=== PATIENT | female | born 1955 | race Caucasian/White ===

== ENCOUNTER 2024-08-06 18:11 | Emergency (ER) | payer MEDICARE, SELFPAY ==
[2024-08-06 18:19] VITALS: BP 138/96; PULSE 766; O2SAT 97
[2024-08-06 19:01] VITALS: BP 128/76; PULSE 85; RESP 18; TEMP 36.5; O2SAT 97; BMI 26.6
--- NOTE | 2024-08-06 19:01 | ED_ITS ---
HPI - Psych General Chief Complaint: Psychiatric Symptoms Stated Complaint: MENTAL HEALTH Time Seen by Provider: 08/06/24 21:04 Source: patient Mode of arrival: ambulatory Limitations: no limitations History of Present Illness ED Provider: Dr. Aspen Gabriel HPI Narrative: Patient comes to the emergency room complaining of severe anxiety and depression. Patient states that she is compliant with her medications. Denies SI or HI. Patient reports that approximately a month ago the symptoms got worse after she ended a relationship. Patient comes accompanied by a friend who gives most of the history. Seems that patient has had more episodes of shakiness which are worse in the morning. Earlier today they went to [facility], referred to [facility] and they referred them to the ED. Related Data Allergies Allergy/AdvReac Type Severity Reaction Status Date / Time No Known Allergies Allergy Verified 08/06/24 19:07 Review of Systems 2 Review of Systems: Constitutional : No Weight loss, No Fever, No Chills, No Night Sweats, No Fatigue, No Malaise ENT/Mouth : No Hearing loss, No Ear Pain, No Nasal Congestion, No Sinus Pain, No Hoarseness, No sore throat, No Rhinorrhea, No Swallowing Difficulty Eyes: No Eye Pain, No Swelling, No Redness, No Foreign Body, No Discharge, No Vision Changes Cardiovascular : No Chest Pain, No SOB, No Dyspnea on Exertion, No Orthopnea, No Edema, No Palpitations Respiratory : No Cough, No Sputum, No Wheezing, No Smoke Exposure, No Dyspnea Gastrointestinal : No Nausea, No Vomiting, No Diarrhea, No Constipation, No abdominal Pain, No Hematochezia, No Melena Genitourinary : no irregular bleeding, No Dysuria, No Urinary Frequency, No Hematuria, No Urinary Incontinence, No Urgency, No Flank Pain, No Urinary Flow Changes, No Hesitancy Musculoskeletal : No joint pain, No Myalgias, No Joint Swelling Skin : No Skin Lesions, No rash Neuro : No Weakness, No Numbness, No Paresthesias, No Loss of Consciousness, No Dizziness, No Headache Psych : Complaining of anxiety, depression and panic attacks, worsening shakiness and jaw movements in the morning from anxiety, No SI/HI/AH/VH, No Social Issues, Heme/Lymph: No Bruising, No Bleeding,No Lymphadenopathy Endocrine : No Polyuria, No Polydipsia, No Temperature Intolerance [facility] Past Medical History Medical History (Updated 08/06/24 @ 22:03 by Aspen Gabriel MD) Anxiety and depression Social History Social History Advance Directives: No Advance Directives Information Provided: No Physical Exam 2 Vital Signs: Vital Signs: Last Vital Signs Temp 97.7 F 08/06/24 19:01 Pulse 85 08/06/24 19:01 Resp 18 08/06/24 19:01 BP 128/76 08/06/24 19:01 Pulse Ox 97 08/06/24 19:01 O2 Del Method Room Air 08/06/24 19:01 BMI result Body Mass Index 26.6 Const: Other: Appearance: Alert. Oriented X3. No acute distress. Eyes: Pupils equal, round and reactive to light. ENT: Pharynx normal. Neck: Normal inspection. Neck supple. No lymph nodes noted. No crepitus CVS: Normal heart rate and rhythm. Pulses normal. Normal S1 and S2 Respiratory: No respiratory distress. Breath sounds normal. No Wheezing. No rales Abdomen: Soft and nontender. No rigidity. No distention. Skin: Skin warm and dry. Normal skin color. Normal skin turgor. Extremities: No lower extremity edema. No Lacerations. No Rash Neuro: Oriented X 3. No motor deficit. No sensory deficit. Moving all extremities. No slurred speech. CN 2 through 12 grossly intact Psych: calm, cooperative, a bit anxious, shaking her hands and jaw Course Course Course Narrative: This is a Rapid Medical Examination (RME) performed by Stefanie Alegre PA-C in triage. Full HPI, ROS, assessment and treatment plan per primary provider in the Main ED. 69 yo female hx of anxiety here via EMS from [facility] for mental health issues . reports increased anxiety and stress x months surrounding her current job. reports patient tremulous every morning. currently on risperodone, citalopram, and hydroxyzine x1 year. no recent med changes. denies SI/HI. reports she has conversations with people that don't exist . in response to this, patient states that she sleep walks and does things that she is not aware of. admits to occasional etoh consumption. smokes marijuana occasionally to help her sleep. hoping to have patient evaluated by psych. + no tremors, no clonus Plan: medical clearance, care team, psych eval Medical Decision Making Medical Decision Making MDM Narrative: -my interpretation of labs: No obvious abnormality in hematology, chemistry is within normal limits, LFTs are elevated based on and ETOH pattern, urinalysis negative for UTI, ETOH positive for marijuana and alcohol -patient's friend states that in the past patient has been admitted, inpatient and did very well with it. Both patient and her friend believes that it would be the best option for them. -patient is not SI or HI, at this time sections of is not indicated -physician observation started at 09:20 p.m. Patient was given her home medications and also a dose of Ativan since she is very anxious. -I discussed with the patient and her friend that the care team will not be evaluating the patient until approximately 03:00 to 04:00 because her alcohol blood levels are elevated. -patient's friend adamant that he would prefer that she was 20 inpatient setting, even if it is dual diagnosis for alcohol dependence and depression/anxiety -care team consult pending -patient is unwilling to stay as she wants to be evaluated right away. I spoke with the care team, but at this time, they will not do the evaluation due to the high alcohol levels. -patient is adamant that she is not SI or HI, there is no indication to Section 12 the patient. -patient able to walk with steady gait -patient's friend is willing to take her home. -I spoke with the care team, they informed me that the patient was already evaluated by [facility] prior to coming. [facility] recommend outpatient care and follow-up, they were given resources. The patient's friend got up because he wants her to go inpatient. Patient called an ambulance from [facility] to bring her to the emergency room. Care team willing to re-evaluate the patient. However, as mentioned above, they will have to wait until the patient's alcohol level comes down -per patient's request, patient being discharged. Patient's friend willing to take her home Differential Diagnosis Differential Diagnoses: The differential diagnosis associated with the presentation includes (Anxiety, depression) Admission/Observation Consideration of admission/observation: Escalation of care including admission/observation considered (Patient is under physician observation waiting to be seen by the care team and determine patient's disposition) Lab Data MDM Lab Attestation statement: I reviewed the patient's lab results. 08/06/24 19:43 08/06/24 19:43 Labs: Lab Results 10/04/24 Range/Units 19:43 WBC 3.4 L (4.8-10.8) X10*3/uL RBC 3.93 L (4.20-5.50) X10*6/uL Hgb 13.3 (12.0-16.0) g/dl Hct 38.1 (37.0-47.0) % MCV 96.9 (80.0-98.0) fL MCH 33.8 H (27.0-33.0) pg MCHC 34.9 (31.0-35.0) g/dl RDW 13.6 (11.0-16.0) % Plt Count 176 (160-400) X10*3/uL MPV 8.8 L (9.4-12.3) fL Immature Gran % (Auto) 0.3 (0.0-0.4) % Neut % (Auto) 36.2 L (45-73) % Lymph % (Auto) 51.5 H (20-40) % [place] % (Auto) 9.9 (2-11) % Eos % (Auto) 1.2 (0-4) % Baso % (Auto) 0.9 (0-2) % Lymph # (Auto) 1.8 (1.2-4.9) X10*3/uL [place] # (Auto) 0.3 (0.1-1.2) X10*3/uL Eos # (Auto) 0.0 (0.0-0.4) X10*3/uL Baso # (Auto) 0.0 (0.0-0.2) X10*3/uL Abs Immat Gran (auto) 0.01 (0.00-0.03) X10*3/uL Absolute Neuts (auto) 1.3 L (2.0-8.3) x10*3/uL Absolute Nucleated RBC 0.000 (0.0-0.012) X10*3/uL Nucleated RBC % (auto) 0.0 (0.0-0.2) /100WBC Sodium 143 (135-145) mmol/L Potassium 3.4 (3.3-5.1) mmol/L Chloride 106 (96-108) mmol/L Carbon Dioxide 28 (22-29) mmol/L Anion Gap 12 (12-20) BUN 6 L (9-16) mg/dL Creatinine 0.63 (0.5-1.4) mg/dL Estim Creat Clear Calc 83.3 Estimated GFR > 60 Random Glucose 109 (60-115) mg/dL Calcium 8.6 (8.4-10.2) mg/dL Magnesium 2.1 (1.6-2.6) mg/dL Total Bilirubin 0.4 (0.0-1.0) mg/dL AST 200 H (5-31) U/L ALT 108 H (0-31) U/L Alkaline Phosphatase 84 (39-117) U/L Total Protein 8.0 (6.5-8.0) g/dL Albumin 4.5 (3.5-5.0) g/dL Lipase 51 (8-78) U/L TSH 0.59 (0.32-4.0) uIU/mL Urine Color Yellow Urine Appearance Clear Urine pH 6.0 (5.0-9.0) Ur Specific [place] 1.010 (1.005-1.025) Urine Protein Negative (Neg-Trace) mg/dL Urine Glucose (UA) Negative (Negative) mg/dL Urine Ketones Negative (Negative) mg/dL Urine Blood Negative (Negative) Urine Nitrite Negative (Negative) Ur Leukocyte Esterase Negative (Negative) Salicylates < 5.0 L (15-30) mg/dL Urine Opiates Screen Not Detected (Not Detect) Ur Buprenorphine Scrn Not Detected (Not Detect) ng/mL Ur Oxycodone Screen Not Detected (Not Detect) ng/mL Urine Methadone Screen Not Detected (Not Detect) ng/mL Urine Fentanyl Screen Not Detected (Not Detect) Ur Barbiturates Screen Not Detected (Not Detect) Ur Phencyclidine Scrn Not Detected (Not Detect) Ur Amphetamines Screen Not Detected (Not Detect) U Benzodiazepines Scrn Not Detected (Not Detect) Urine Cocaine Screen Not Detected (Not Detect) U Marijuana (THC) Screen POSITIVE H (Not Detect) Ethyl Alcohol 283 mg/dL Critical Care Time Critical Care Time Critical Care Time: Yes Total Critical Care Time: 45 Attestation: I have personally provided critical care time. Time includes review of lab data, radiology results, discussion with consultants, and monitoring for potential decompensation. Intervention performed as documented. Discharge Plan Discharge Clinical Impression: Anxiety and depression, Alcohol abuse Patient Disposition: Home, Self-Care Instructions: Abuse of Alcohol (ED), Alcohol Use Disorder (ED), Anxiety (ED) Additional Instructions: Please follow-up with your primary care physician tomorrow. If you have any worsening or new symptoms, please return to the emergency room or call 911 Print Language: French
--- NOTE | 2024-08-06 19:09 | ECG_ITS ---
Test Reason : anxiety Blood Pressure : / mmHG Vent. Rate : 076 BPM Atrial Rate : 076 BPM P-R Int : 154 ms QRS Dur : 096 ms QT Int : 388 ms P-R-T Axes : 036 -32 001 degrees QTc Int : 436 ms Normal sinus rhythm Left axis deviation Abnormal ECG No previous ECGs available Referred By: Adrienne Alegre Electronically Signed By:DANIELLE BELL
--- NOTE | 2024-08-06 19:32 | MHC.CARE ---
[facility] called CARE team to report an expect. of Pt presenting to the ER. Aleyda ([facility] Clinician) stated Pt was seen at their office looking for CCS level of care, Pt was assessed and did not need higher level of care of IPLOC or CCS, Pt denied any SI/HI/AH/VH was able to contract for safety and to return home. [facility] is refering Pt for Outpatient therapy, Follow up calls for the next 72 hours and are to check in with her with community visits as well. Aleyda stated Pt was agreeable to this disposition and felt safe returning home however that her spouse wanted her to be seen at the ER regardless. Aleyda reported she informed Pt that she would need to get transportation to the ER or call ambulance as she was voluntarily presenting to the ER as she was cleared from [facility] crisis and disposition was refer to outpatient and follow up calls. CARE will follow up with Pt when and if she is referred for CARE team assessment.
--- NOTE | 2024-08-06 19:45 | MHC.EDTECH ---
Patient brought into triage area,EKG taken per order and signed by provider,labs,and urine obtained and sent to lab.
[2024-08-06 19:53] LABS: MANUAL DIFF FLAG NO
[2024-08-06 19:54] LABS: Basophils Percent Auto 0.9 % (0-2); Eosinophils Percent Auto 1.2 % (0-4); Hematocrit 38.1 % (37.0-47.0); Hemoglobin 13.3 g/dl (12.0-16.0); Imm Gran Abs Auto 0.01 X10*3/uL (0.00-0.03); Imm Gran Pct Auto 0.3 % (0.0-0.4); Lymphocytes Absolute Auto 1.8 X10*3/uL (1.2-4.9); Lymphocytes Percent Auto 51.5 % (20-40); Mean Corpuscular HGB Conc 34.9 g/dl (31.0-35.0); Mean Corpuscular Hemoglobin 33.8 pg (27.0-33.0); Mean Corpuscular Volume 96.9 fL (80.0-98.0); Mean Platelet Volume 8.8 fL (9.4-12.3); Monocytes Absolute Auto 0.3 X10*3/uL (0.1-1.2); Monocytes Percent Auto 9.9 % (2-11); Neutrophils Absolute Auto 1.3 x10*3/uL (2.0-8.3); Neutrophils Percent Auto 36.2 % (45-73); Platelet Count 176 X10*3/uL (160-400); Red Blood Count 3.93 X10*6/uL (4.20-5.50); Red Cell Distribution Width 13.6 % (11.0-16.0); White Blood Count 3.4 X10*3/uL (4.8-10.8)
[2024-08-06 20:04] LABS: Amphetamine Screen Urine Not Detected (Not Detect); Barbiturates, Urine Not Detected (Not Detect); Benzodiazepines Screen Urine Not Detected (Not Detect); Buprenorphine Scr Not Detected (Not Detect); Cannabinoid Screen Urine POSITIVE (Not Detect); Cocaine Screen Urine Not Detected (Not Detect); Fentanyl, urine Not Detected (Not Detect); Methadone Screen, Urine Not Detected (Not Detect); Opiate Screen Urine Not Detected (Not Detect); Oxycodone Screen Urine Not Detected (Not Detect); Phencyclidine Screen Urine Not Detected (Not Detect)
[2024-08-06 20:07] LABS: Appearance Urine Clear; Color Urine Yellow; Glucose Urine UA Negative (Negative); Leukocyte Esterase Urine Negative (Negative); Nitrite Urine Negative (Negative); Urine Blood Negative (Negative); Urine Ketones Negative (Negative); Urine Protein Negative (Neg-Trace)
[2024-08-06 20:08] LABS: Alanine Aminotransferase 108 U/L (0-31); Albumin Level 4.5 g/dL (3.5-5.0); Alkaline Phosphatase 84 U/L (39-117); Anion Gap 12 (12-20); Aspartate Amino Transferase 200 U/L (5-31); Bilirubin Total 0.4 mg/dL (0.0-1.0); Blood Urea Nitrogen 6 mg/dL (9-16); Calcium 8.6 mg/dL (8.4-10.2); Carbon Dioxide 28 mmol/L (22-29); Chloride 106 mmol/L (96-108); Creatinine Clr Calc Pharmacy 83.3; Estimated Glomerular Filt Rate > 60; Glucose Random 109 mg/dL (60-115); Lipase 51 U/L (8-78); Magnesium 2.1 mg/dL (1.6-2.6); Potassium 3.4 mmol/L (3.3-5.1); Sodium 143 mmol/L (135-145)
[2024-08-06 20:11] LABS: Ethanol 283 mg/dL
[2024-08-06 20:12] LABS: Salicylate < 5.0 mg/dL (15-30)
[2024-08-06 20:30] LABS: TSH reflex Free T4 0.59 uIU/mL (0.32-4.0)
--- NOTE | 2024-08-06 21:16 | ED.PSYCH ---
HPI - Psych General Chief Complaint: Psychiatric Symptoms Stated Complaint: MENTAL HEALTH Time Seen by Provider: 08/06/24 21:04 Source: patient Mode of arrival: ambulatory Limitations: no limitations Related Data Allergies Allergy/AdvReac Type Severity Reaction Status Date / Time No Known Allergies Allergy Verified 08/06/24 19:07 PENDING SALE TO [facility] Past Medical History Medical History (Updated 08/06/24 @ 21:19 by Aspen Gabriel MD) Anxiety and depression Social History Social History Advance Directives: No Advance Directives Information Provided: No Physical Exam Vital Signs: Vital Signs: Last Vital Signs Temp 97.7 F 08/06/24 19:01 Pulse 85 08/06/24 19:01 Resp 18 08/06/24 19:01 BP 128/76 08/06/24 19:01 Pulse Ox 97 08/06/24 19:01 O2 Del Method Room Air 08/06/24 19:01 BMI result Body Mass Index 26.6 Medical Decision Making Lab Data 08/06/24 19:43 08/06/24 19:43 Labs: Lab Results 08/06/24 Range/Units 19:43 WBC 3.4 L (4.8-10.8) X10*3/uL RBC 3.93 L (4.20-5.50) X10*6/uL Hgb 13.3 (12.0-16.0) g/dl Hct 38.1 (37.0-47.0) % MCV 96.9 (80.0-98.0) fL MCH 33.8 H (27.0-33.0) pg MCHC 34.9 (31.0-35.0) g/dl RDW 13.6 (11.0-16.0) % Plt Count 176 (160-400) X10*3/uL MPV 8.8 L (9.4-12.3) fL Immature Gran % (Auto) 0.3 (0.0-0.4) % Neut % (Auto) 36.2 L (45-73) % Lymph % (Auto) 51.5 H (20-40) % [place] % (Auto) 9.9 (2-11) % Eos % (Auto) 1.2 (0-4) % Baso % (Auto) 0.9 (0-2) % Lymph # (Auto) 1.8 (1.2-4.9) X10*3/uL [place] # (Auto) 0.3 (0.1-1.2) X10*3/uL Eos # (Auto) 0.0 (0.0-0.4) X10*3/uL Baso # (Auto) 0.0 (0.0-0.2) X10*3/uL Abs Immat Gran (auto) 0.01 (0.00-0.03) X10*3/uL Absolute Neuts (auto) 1.3 L (2.0-8.3) x10*3/uL Absolute Nucleated RBC 0.000 (0.0-0.012) X10*3/uL Nucleated RBC % (auto) 0.0 (0.0-0.2) /100WBC Sodium 143 (135-145) mmol/L Potassium 3.4 (3.3-5.1) mmol/L Chloride 106 (96-108) mmol/L Carbon Dioxide 28 (22-29) mmol/L Anion Gap 12 (12-20) BUN 6 L (9-16) mg/dL Creatinine 0.63 (0.5-1.4) mg/dL Estim Creat Clear Calc 83.3 Estimated GFR > 60 Random Glucose 109 (60-115) mg/dL Calcium 8.6 (8.4-10.2) mg/dL Magnesium 2.1 (1.6-2.6) mg/dL Total Bilirubin 0.4 (0.0-1.0) mg/dL AST 200 H (5-31) U/L ALT 108 H (0-31) U/L Alkaline Phosphatase 84 (39-117) U/L Total Protein 8.0 (6.5-8.0) g/dL Albumin 4.5 (3.5-5.0) g/dL Lipase 51 (8-78) U/L TSH 0.59 (0.32-4.0) uIU/mL Urine Color Yellow Urine Appearance Clear Urine pH 6.0 (5.0-9.0) Ur Specific [place] 1.010 (1.005-1.025) Urine Protein Negative (Neg-Trace) mg/dL Urine Glucose (UA) Negative (Negative) mg/dL Urine Ketones Negative (Negative) mg/dL Urine Blood Negative (Negative) Urine Nitrite Negative (Negative) Ur Leukocyte Esterase Negative (Negative) Salicylates < 5.0 L (15-30) mg/dL Urine Opiates Screen Not Detected (Not Detect) Ur Buprenorphine Scrn Not Detected (Not Detect) ng/mL Ur Oxycodone Screen Not Detected (Not Detect) ng/mL Urine Methadone Screen Not Detected (Not Detect) ng/mL Urine Fentanyl Screen Not Detected (Not Detect) Ur Barbiturates Screen Not Detected (Not Detect) Ur Phencyclidine Scrn Not Detected (Not Detect) Ur Amphetamines Screen Not Detected (Not Detect) U Benzodiazepines Scrn Not Detected (Not Detect) Urine Cocaine Screen Not Detected (Not Detect) U Marijuana (THC) Screen POSITIVE H (Not Detect) Ethyl Alcohol 283 mg/dL Discharge Plan Discharge Print Language: Icelandic
--- NOTE | 2024-08-06 22:00 | PC.NURSE ---
Pt now demanding to leave stating that she wants to go home. She is awake, alert, skin normal for ethnicity and without distress noted. She has been noted to walk around the vicinity of her bed with even and steady gait. Pt becoming increasingly more aggitated as she is noted to be yelling at her spouse, demanding that he stops sharing information with the staff. Spouse approached this RN tearful and expressing his concerns as he believes the pt will go home and continue to drink. RN spoke with MD Gabriel about the case and our options. RN made the spouse aware that due to her being intoxicated the only way she would be able to be dc'd is with him, if he chose to not take her we could not let her go/leave. aware of plan for dc home with spouse as he is concerned about the repercussions of leaving the patient here for further eval. He is agreeable to bring her home safely
[2024-08-06 22:05] VITALS: BP 00/00; PULSE 0; RESP 0; TEMP -17.7; TEMP 0; O2SAT 0
== END 2024-08-06 22:10 | disposition home or self-care (01) ==
PROVIDERS: Physician Assistant Medical; Emergency Provider Emergency Medicine; PCP Hospitalist
DX: F41.9 Anxiety disorder, unspecified (principal); F32.A Depression, unspecified; F10.10 Alcohol abuse, uncomplicated; Y90.8 Blood alcohol level of 240 mg/100 ml or more; F12.90 Cannabis use, unspecified, uncomplicated; Z79.899 Other long term (current) drug therapy
CPT/HCPCS: 36415; 80053; 80179; 80307; 81003; 83690; 83735; 84443; 85025; 93005; 99284